=== PATIENT | female | born 1955 | race Caucasian/White ===

== ENCOUNTER → 2023-11-27 06:49 | Outpatient (REF) | payer BC, SELFPAY | LOC: RAD 06:49 | PROVIDERS: ATTENDING PHYSICIAN Internal Medicine Gastroenterology; FAMILY PHYSICIAN Nurse Practitioner | DX: K92.89 Other specified diseases of the digestive system (principal) | CPT/HCPCS: 74018 ==

== ENCOUNTER → 2024-02-23 09:37 | Outpatient (REF) | payer BC, SELFPAY | LOC: RAD 09:37 | PROVIDERS: ATTENDING PHYSICIAN Internal Medicine Gastroenterology; FAMILY PHYSICIAN Nurse Practitioner | DX: K92.89 Other specified diseases of the digestive system (principal) | CPT/HCPCS: 76700 ==

== ENCOUNTER → 2024-05-08 09:26 | Outpatient (REF) | payer BC, SELFPAY | LOC: HWWDC 09:26 | PROVIDERS: ATTENDING PHYSICIAN Nurse Practitioner | DX: Z12.31 Encounter for screening mammogram for malignant neoplasm of breast (principal) | CPT/HCPCS: 77063; 77067 ==

== ENCOUNTER 2024-05-23 06:21 | Day surgery (SDC) | payer BC, SELFPAY | END 2024-05-23 13:35 | disposition home or self-care (01) | LOC: GI 06:21 | PROVIDERS: ATTENDING PHYSICIAN Internal Medicine Gastroenterology | DX: Z12.11 Encounter for screening for malignant neoplasm of colon (principal); K57.30 Diverticulosis of large intestine without perforation or abscess without bleeding; K22.89 Other specified disease of esophagus; K22.70 Barrett's esophagus without dysplasia; K44.9 Diaphragmatic hernia without obstruction or gangrene; K31.7 Polyp of stomach and duodenum; K31.89 Other diseases of stomach and duodenum; Z86.0101 Personal history of adenomatous and serrated colon polyps | CPT/HCPCS: 43239; G0105; 88305; 88342 ==

== ENCOUNTER → 2024-05-29 10:56 | Outpatient (REF) | payer BC, SELFPAY | LOC: HWRAD 10:56 | PROVIDERS: ATTENDING PHYSICIAN Internal Medicine Rheumatology; FAMILY PHYSICIAN Nurse Practitioner | DX: M81.0 Age-related osteoporosis without current pathological fracture (principal) | CPT/HCPCS: 77080 ==

== ENCOUNTER → 2024-12-19 10:34 | Outpatient (REF) | payer BC, SELFPAY | LOC: MRI 3T 10:34 | PROVIDERS: ATTENDING PHYSICIAN Physician Assistant Medical; FAMILY PHYSICIAN Nurse Practitioner | DX: M54.2 Cervicalgia (principal); M54.12 Radiculopathy, cervical region | CPT/HCPCS: 72141 ==